=== PATIENT | male | born 1950 | race Caucasian/White ===

== ENCOUNTER 2019-02-27 21:35 | Observation (INO) | payer OTHER, SELFPAY | END 2019-02-28 13:07 | disposition home or self-care (01) | LOC: MEDSURG 02-28 09:46 | PROVIDERS: Admitting Provider Internal Medicine; Emergency Provider Family Medicine; Family Provider Internal Medicine; PCP Internal Medicine; Visit Provider Internal Medicine | DX: K29.70 Gastritis, unspecified, without bleeding (principal); I25.10 Atherosclerotic heart disease of native coronary artery without angina pectoris; I10 Essential (primary) hypertension; E11.9 Type 2 diabetes mellitus without complications; N40.0 Benign prostatic hyperplasia without lower urinary tract symptoms; E78.5 Hyperlipidemia, unspecified; Z79.82 Long term (current) use of aspirin; Z79.4 Long term (current) use of insulin; Z79.02 Long term (current) use of antithrombotics/antiplatelets; Z95.5 Presence of coronary angioplasty implant and graft; K21.9 Gastro-esophageal reflux disease without esophagitis; G47.00 Insomnia, unspecified; M19.90 Unspecified osteoarthritis, unspecified site | CPT/HCPCS: 36415; 36416 ×3; 36600; 71045; 74176; 80048; 80053; 82803; 82962 ×3; 83605 ×2; 83690; 83735; 83880; 84484 ×2; 85025 ×2; 85610; 87040 ×2; 87804 ×2; 93005 ×3; 96361; 96374; 96375; 99284; G0378 ×62; J1644 ×2; J1815; J2405 ×2 ==

== ENCOUNTER 2019-04-01 03:24 | Inpatient (IN) | payer OTHER, SELFPAY ==
[2019-04-01] VITALS (67 sets, daily range): BP systolic 66–157; BP diastolic 46–98; PULSE 69–106; RESP 12–40; TEMP 36.4–36.9; O2SAT 90–100; BMI 27.8
--- NOTE | 2019-04-01 03:30 | ED_ITS ---
Entered by Jennyfer [place], acting as scribe for Michael Wheeler DO HPI - Dizziness General: Chief Complaint: Dizziness Stated Complaint: DIZZINESS Time Seen by Provider: 04/01/19 03:31 Source: patient Mode of arrival: EMS Limitations: no limitations History of Present Illness: HPI Narrative: 69 yo m came to the er by [facility] for Dizziness. Onset was tonight. Pt states that he woke up with some dizziness and had chest pain earlier but the chest pain is gone now. MD elicited complaint: dizziness Onset (ago): day(s) (tonight) Timing: sudden onset Severity: mild History of similar symptoms: No Associated symptoms: Reports no associated symptoms, chest pain, cough, fevers/chills and nausea; Denies chills, headache(s) or vomiting Associated neuro symptoms: Reports no associated symptoms; Deny confusion Review of Systems Const: Reports: fever; Denies: chills Eyes: Denies: change in vision ENMT: Denies: swelling of lips/tongue Card: Reports: chest pain Resp: Reports: shortness of breath and productive cough; Denies: non-productive cough or wheezing GI: Reports: abdominal pain and nausea; Denies: vomiting : Denies: difficulty urinating Musc: Denies: back pain, redness or joint warmth Skin/Breast: Denies: rash, itching or redness Neuro: Reports: dizziness; Denies: headache, vertigo or confusion Psych: Denies: anxiety PFSH ED PFSH: Statuses (acute, chronic, etc) shown below reflect problem list status as previously entered and may not be historically accurate Medical History (Updated 04/01/19 @ 11:03 by Erfaín Harrington MD) Atherosclerotic heart disease of [place] coronary artery with other forms of angina pectoris (Acute) Benign prostate hyperplasia (Acute) CAD (coronary artery disease) (Acute) Chronic abdominal pain (Acute) Coronary stent restenosis (Acute) Diabetes (Acute) Diabetic nephropathy (Acute) Dyslipidemia (Acute) Fatigue (Acute) Gastroesophageal reflux (Acute) H/O coronary angiogram (Acute) Hypertension (Acute) Surgical History H/O cardiac catheterization (Acute) History of heart artery stent (Acute) Hx of appendectomy (Acute) Family History Other Hyperlipidemia Hypertension Social History Smoking and tobacco status: never smoked Alcohol intake: never Substance/Drug Use: never Household members: spouse Housing: House Physical Exam Const: GENERAL APPEARANCE: well developed and ill appearing ORIENTATION/CONSCIOUSNESS: Yes oriented to person, Yes oriented to place and Yes oriented to time HENMT: COMMON NORMALS: normocephalic, external ears normal and external nose normal HEAD & SCALP: normocephalic; no scalp tenderness FACE & SINUS: normal facial exam NOSE: external nose normal and no nasal discharge EXTERNAL EAR: Yes external ears normal Eye: COMMON NORMALS: PERRL, EOMs intact bilaterally and conjunctivae normal EYELID: eyelids normal CONJUNCTIVA: Yes conjunctivae normal PUPIL: Yes PERRL Neck/C-Spine: COMMON NORMALS: full ROM GENERAL: No tracheal deviation Chest: COMMONS NORMALS: inspection of chest normal CHEST: No tenderness Resp: COMMON NORMALS: clear to auscultation bilaterally EFFORT & INSPECTION: No tachypneic, No respiratory distress, No retractions, No uses accessory muscles and No tracheal deviation AUSCULTATION: clear to auscultation bilaterally, no rhonchi, no wheezes and lung sounds not diminished Cardio: COMMON NORMALS: regular rate; negative for regular rhythm RATE: regular rate RHYTHM: abnormal rhythm HEART SOUNDS: no murmurs PERIPHERAL PULSES: radial pulses present GI: INSPECTION: No abdominal distension AUSCULTATION: No hyperactive bowel sounds and No hypoactive bowel sounds PALPATION: No guarding and No rigid PERCUSSION: no dullness to percussion and no tympanic to percussion Neuro: SENSORIUM/ORIENTATION: Yes oriented to person, Yes oriented to place and Yes oriented to time Psych: COMMON NORMALS: mental status grossly normal Skin: COMMON NORMALS: no rashes or lesions noted GENERAL SKIN EXAM: no rashes or lesions noted Course ED course: 69-year-old male with a history of prior coronary disease and stent. He had been having more chest discomfort symptoms for the past couple of weeks. He was seen by his assistant activities director a couple of days ago, and has had chest pain episodes on and off since then requiring nitroglycerin at home. When he awoke this morning, he was quite dizzy, nearly passed out at home. He did not feel well at all. He denied any chest pain. He still continues to deny chest pain. He was hypotensive on EMS arrival, and remained so here. Current blood pressure is 81/46. His heart rate 73. His EKG done and read at 3:37 AM shows atrial fibrillation, with cues anteriorly that were not present on his prior EKG a month ago. He also has some residual ST elevation in V3 V4 and V5. Spoke with cardiology. They agree he is likely completed an infarct. Since he is not having chest pain at this time, the recommendation is to treat him medically. His chest x-ray shows a possible infiltrate. He notes a low-grade temperature the past few days and had been coughing. He is gotten aspirin. Rectal exam performed due to apparent decrease in hemoglobin since the last month. It is negative for occult blood. He is still denying any chest pain. He will go to the ICU because of the continued hypotension. The unit of crossmatched blood has been ordered. Consultations: Consultation #1: izzy. Called, no answer Time: 03:45 Consultation #2: Ankita Time: 03:55 Vital Signs: Vital signs: Vital Signs Temperature 98.1 F 04/02/19 00:21 Pulse Rate 89 04/02/19 00:21 Respiratory Rate 28 H 04/02/19 00:21 Blood Pressure 128/85 04/02/19 00:21 Pulse Oximetry 94 04/01/19 22:20 MDM - Dizziness Lab Data: Labs: Lab Results 04/01/19 04/01/19 04/01/19 Range/Units 04:10 04:10 04:10 WBC 10.5 H (4.0-10.0) 10^3/ uL RBC 3.11 L (4.1-5.3) 10^6/u L Hgb 8.8 L (11.7-16.6) g/dL Hct 27.1 L (42.0-52.0) % MCV 87.1 (80-94) fL MCH 28.3 (28.0-34.0) pg MCHC 32.5 (30.0-36.0) g/dL RDW 13.5 (12.1-15.1) % Plt Count 195 (130-400) 10^3/c mm MPV 12.4 H (7.4-10.4) fL Neut % (Auto) 69.2 % Lymph % (Auto) 16.5 % [place] % (Auto) 12.8 % Eos % (Auto) 1.1 % Baso % (Auto) 0.2 % Neut # (Auto) 7.3 (1.8-7.7) 10^3/u L Lymph # (Auto) 1.7 (0.8-4.8) 10^3/u L [place] # (Auto) 1.4 H (0.2-0.9) 10^3/u L Eos # (Auto) 0.1 (0.0-0.8) 10^3/u L Baso # (Auto) 0.0 (0.0-0.1) 10^3/u L Nucleated RBC % (a uto) 0 % Nucleated RBCs # 0.0 /100WBC PT 15.40 H (10.5-13.3) SECO NDS INR 1.18 (0.8-1.2) APTT 24.5 (23.9-36.7) SECO NDS Sodium Cancelled Potassium Cancelled Chloride Cancelled Carbon Dioxide Cancelled Anion Gap Cancelled BUN Cancelled Creatinine Cancelled GFR Calculation Cancelled Glucose Cancelled Lactate (0.5-2.2) mmol/L Calcium Cancelled Magnesium Cancelled Total Bilirubin Cancelled AST Cancelled ALT Cancelled Alkaline Phosphata se Cancelled Creatine Kinase Cancelled Troponin T Baselin e (0-15) ng/mL NT-Pro-B Natriuret Pep Cancelled Total Protein Cancelled Albumin Cancelled Globulin Cancelled Blood Type Antibody Screen Crossmatch 04/01/19 04/01/19 04/01/19 Range/Units 04:10 04:10 04:10 WBC (4.0-10.0) 10^3/ uL RBC (4.1-5.3) 10^6/u L Hgb (11.7-16.6) g/dL Hct (42.0-52.0) % MCV (80-94) fL MCH (28.0-34.0) pg MCHC (30.0-36.0) g/dL RDW (12.1-15.1) % Plt Count (130-400) 10^3/c mm MPV (7.4-10.4) fL Neut % (Auto) % Lymph % (Auto) % [place] % (Auto) % Eos % (Auto) % Baso % (Auto) % Neut # (Auto) (1.8-7.7) 10^3/u L Lymph # (Auto) (0.8-4.8) 10^3/u L [place] # (Auto) (0.2-0.9) 10^3/u L Eos # (Auto) (0.0-0.8) 10^3/u L Baso # (Auto) (0.0-0.1) 10^3/u L Nucleated RBC % (a uto) % Nucleated RBCs # /100WBC PT (10.5-13.3) SECO NDS INR (0.8-1.2) APTT (23.9-36.7) SECO NDS Sodium 130 L Potassium 3.9 Chloride 94 L Carbon Dioxide 20 L Anion Gap 19.9 H BUN 12 Creatinine 1.3 H GFR Calculation 55.1 L Glucose 292 H Lactate 2.3 H (0.5-2.2) mmol/L Calcium 8.6 Magnesium 1.3 L Total Bilirubin 1.8 H AST 46 H ALT 17 Alkaline Phosphata se 77 Creatine Kinase 489 H* Troponin T Baselin e 1439 H* (0-15) ng/mL NT-Pro-B Natriuret Pep 20323 H Total Protein 6.5 L Albumin 3.0 L Globulin 3.5 Blood Type Antibody Screen Crossmatch 04/01/19 04/01/19 Range/Units 05:39 05:39 WBC (4.0-10.0) 10^3/ uL RBC (4.1-5.3) 10^6/u L Hgb 9.0 L (11.7-16.6) g/dL Hct 27.9 L (42.0-52.0) % MCV (80-94) fL MCH (28.0-34.0) pg MCHC (30.0-36.0) g/dL RDW (12.1-15.1) % Plt Count (130-400) 10^3/c mm MPV (7.4-10.4) fL Neut % (Auto) % Lymph % (Auto) % [place] % (Auto) % Eos % (Auto) % Baso % (Auto) % Neut # (Auto) (1.8-7.7) 10^3/u L Lymph # (Auto) (0.8-4.8) 10^3/u L [place] # (Auto) (0.2-0.9) 10^3/u L Eos # (Auto) (0.0-0.8) 10^3/u L Baso # (Auto) (0.0-0.1) 10^3/u L Nucleated RBC % (a uto) % Nucleated RBCs # /100WBC PT (10.5-13.3) SECO NDS INR (0.8-1.2) APTT (23.9-36.7) SECO NDS Sodium Potassium Chloride Carbon Dioxide Anion Gap BUN Creatinine GFR Calculation Glucose Lactate (0.5-2.2) mmol/L Calcium Magnesium Total Bilirubin AST ALT Alkaline Phosphata se Creatine Kinase Troponin T Baselin e (0-15) ng/mL NT-Pro-B Natriuret Pep Total Protein Albumin Globulin Blood Type O Negative Antibody Screen Negative Crossmatch See Detail Discharge Plan Discharge Admit Provider: Kate Becerril Condition: Good Discharge Orders: Transfer Out of Facility (Order); Ordered 04/01/19 Ordered By: Kate Becerril Discharge Diet: Low Salt Discharge Activity: Bedrest Discharge Date/Time: 04/01/19 06:41 Coding Level of Care Code ED Tip Stitcher for Amber Campbell The documentation recorded by the Stanislav em Stephanie Lyn, accurately reflects the service I personally performed and the decisions made by Liam jones Jeremy John, DO Apr 01, 2019 03:24
--- NOTE | 2019-04-01 03:37 | PC.NURSE ---
EKG done at 0334 and shown to ER doctor
--- NOTE | 2019-04-01 03:42 | XRR_ITS ---
PROCEDURE INFORMATION: Exam: XR Chest, 1 View Exam date and time: 04/01/2019 3:46 AM Age: 69 years old Clinical indication: Cough; Prior surgery; Surgery date: 6+ months; Surgery type: Stents; Additional info: Dizzy TECHNIQUE: Imaging protocol: XR of the chest Views: 1 view. COMPARISON: CR Chest 1 [place] [id number] 02/27/2019 6:57 PM FINDINGS: Lungs: Minimal focal opacity in the lateral left lung base. Mild retrocardiac opacity. Pleural space: There is no pleural effusion or pneumothorax. Heart/Mediastinum: Cardiomediastinal contours are unremarkable. Bones/joints: Bones are unremarkable. XR/XR chest 1V portable [id number] IMPRESSION: 1. Questionably abnormal opacity versus normal vessels in the retrocardiac left lung base. Recommend follow-up PA and lateral chest radiograph. 2. Focal opacity in the lateral left lung base likely represents subsegmental atelectasis.
--- NOTE | 2019-04-01 03:45 | ECG_ITS ---
Measurements Intervals [place] Rate: 76 P: PA: 0 QRS: 56 QRSD: 90 T: 102 QT: 381 QTc: 430 ATRIAL FIBRILLATION ANTEROSEPTAL MYOCARDIAL INFARCTION , OF INDETERMINATE AGE [40+ ms Q WAVE IN V1-V4] Compared to ECG 02/28/2019 01:11:06 Myocardial infarct finding now present Sinus tachycardia no longer present Electronically Signed On 04-01-2019 16:23:44 FISHER EEL SPEAR by Efraín Harrington M.D. [id number]
[2019-04-01] MEDS: sodium chloride 0.9% 1,000 ML 999 ML IV (03:57)
--- NOTE | 2019-04-01 04:00 | PC.NURSE ---
pt presents to er room 5 per ems with c/o's recent chest pain x3 days that he has taken nitro for and has resolved. now presents with dizziness, weakness, and difficulty walking.
[2019-04-01 04:28] LABS: Basophils % 0.2 %; Eosinophils # 0.1 10^3/uL (0.0-0.8); Eosinophils % 1.1 %; Hematocrit 27.1 % (42.0-52.0); Hemoglobin 8.8 g/dL (11.7-16.6); Lymphocytes # 1.7 10^3/uL (0.8-4.8); Lymphocytes % 16.5 %; Mean Corpuscular HGB Conc 32.5 g/dL (30.0-36.0); Mean Corpuscular Hemoglobin 28.3 pg (28.0-34.0); Mean Corpuscular Volume 87.1 fL (80-94); Mean Platelet Volume 12.4 fL (7.4-10.4); Monocytes # 1.4 10^3/uL (0.2-0.9); Monocytes % 12.8 %; Neutrophils # 7.3 10^3/uL (1.8-7.7); Neutrophils % 69.2 %; Nucleated Red Blood Cells % 0 %; Platelet Count 195 10^3/cmm (130-400); Red Blood Count 3.11 10^6/uL (4.1-5.3); Red Cell Distribution Width 13.5 % (12.1-15.1); White Blood Count 10.5 10^3/uL (4.0-10.0)
[2019-04-01] MEDS: aspirin 325 mg Tablet PO (04:33)
[2019-04-01 04:38] LABS: Lactate (Lactic Acid level) 2.3 mmol/L (0.5-2.2)
[2019-04-01 04:45] LABS: INR 1.18 (0.8-1.2); Partial Thromboplastin Time 24.5 SECONDS (23.9-36.7)
[2019-04-01 04:55] LABS: Troponin(5th) Baseline 1439 ng/mL (0-15)
--- NOTE | 2019-04-01 04:56 | PC.NURSE ---
baseline troponin critical called to nurse from lab with value of 1439
--- NOTE | 2019-04-01 05:17 | PM.HP ---
Providers/Chief Complaint Primary Care Provider: Jose Raul Riley Chief Complaint: DIZZINESS History of Present Illness Fabián Cruz is a 69 year old male who has established coronary disease, 80% calcified LAD lesion, successful PCI to proximal and mid LAD with 2 drug-eluting stents on 10/20/2016,12/22/2017 he suffered from in-stent restenosis (got treated with overlapping 2 drug-eluting stents in LAD) with a EF of 40% at that time which improved to 60% after intervention, was seen on 03/29/2018by Dr. Mendoza who recommended coronary angiogram in case of development of symptoms. Patient is stating that he has been having shortness of breath and chest pain on exertion lately for past couple of weeks, he is compliant with his medications, his blood pressure mostly runs around 1 30-1 40s at home, he saw Dr. Hair on Wednesday, on night he went to bed after dinner, he started experiencing mild epigastric bandlike discomfort with shortness of breath and cough and around 2 AM he woke up with mild chest discomfort he took sublingual nitroglycerin, he was feeling mild chest discomfort after an hour and took another nitroglycerin. Throughout the day he kept having epigastric discomfort, he took his acid reflux medications which were not helping him like before. On Wednesday night he went to bed, he was still having mild shortness of breath and around 2 AM on Wednesday morning he started experiencing dizziness, he was very pale, he did not notice any dark-colored stools, hematuria, bleeding, hematemesis. His last bowel movement was almost 1 week ago, recently he has been noticing that his new onset of back pain. He thinks his abdomen is bloated. Patient is stating that Dr. Mendoza has reduced his lisinopril dose to 10 mg and discontinued hydrochlorothiazide because of dizziness and hypertension. Diagnostics in ER showed orthostasis systolic blood pressure is 88, diastolic is 60 mmHg, heart rate is ranging between 70-80, he is not complaining of chest pain at the moment but he is orthostasis positive, rectal exam was negative for occult blood, on Wednesday his hemoglobin was 11 and today it is 8.8 Decision was made to admit to ICU hold his dual antiplatelet therapy, consult Dr. Harrington, Dr. Luciano has been notified by ER physician already, transfuse with 1 unit If he starts having symptoms he will need to go to or for coronary angiogram on stat basis Review of Systems Const: Reports: chills, fatigue and malaise Eyes: Denies: change in vision ENMT: Denies: throat pain Card: Reports: chest pain, lightheadedness, pre-syncope, shortness of breath on exertion and shortness of breath when lying down; Denies: palpitations Resp: Reports: shortness of breath; Denies: non-productive cough GI: Reports: abdominal pain, bloating, cramping and change in bowel habits; Denies: nausea, vomiting or change in stool character : Denies: flank pain or difficulty urinating Musc: Reports: back pain; Denies: neck pain Skin/Breast: Denies: rash or itching Neuro: Denies: headache Psych: Denies: anxiety Endo: Denies: excessive urination Manas/Lymph: Denies: easy bruising All/Imm: Denies: hives Medications/Allergies Allergies Allergy/AdvReac Type Severity Reaction Status Date / Time No Known Allergies Allergy Verified 02/28/19 11:42 PFSH Acute PFSH: Statuses (acute, chronic, etc) shown below reflect problem list status as previously entered and may not be historically accurate Medical History (Updated 04/01/19 @ 05:25 by Kate Becerril MD) Benign prostate hyperplasia (Acute) CAD (coronary artery disease) (Acute) Coronary stent restenosis (Acute) Diabetes (Acute) Diabetic nephropathy (Acute) Dyslipidemia (Acute) Fatigue (Acute) Gastroesophageal reflux (Acute) H/O coronary angiogram (Acute) Hypertension (Acute) Surgical History (Updated 04/01/19 @ 05:24 by Kate Becerril MD) H/O cardiac catheterization (Acute) History of heart artery stent (Acute) Hx of appendectomy (Acute) Family History (Updated 04/01/19 @ 05:24 by Kate Becerril MD) Other Hyperlipidemia Hypertension Social History (Updated 04/01/19 @ 06:01 by Kate Becerril MD) Smoking and tobacco status: never smoked Alcohol intake: never Substance/Drug Use: never Household members: spouse Housing: House Vitals/I&O/Wt Last Vital Signs Temp 97.5 F L 04/01/19 03:28 Pulse 76 02/01/20 04:15 Resp 23 H 04/01/19 04:15 BP 79/48 04/01/19 04:15 Pulse Ox 97 04/01/19 04:15 Weight last 48 hrs Weight 98.43 kg Physical Exam Narrative: EXAM NARRATIVE: Overweight male sitting in his bed without any active discomfort, Pallor complexion Systolic blood pressure 88, heart rate 70, Saturating well on room air Abdomen is bloated, with obesity, bowel sounds very sluggish, nontender, no signs of peritonitis, no CVA tenderness, no active signs of bruising however mild left periumbilical bruise present from insulin injection site Variable S1-S2, no active signs of heart failure Chest is clear on auscultation with mild rhonchi bibasilar Neurologically nonfocal exam, GCS 15 Skin does not show any sign ischemia gangrene ulcer Rectal exam negative for occult blood Data : 04/01/19 04:10 04/01/19 04:10 Micro: Microbiology 04/01/19 04:10 Blood Culture - Preliminary Blood SPECIMEN COLLECTED A&P Assessment and plan (1) Unstable angina: Status: Acute Code(s): I20.0 - Unstable angina (2) Orthostasis: Status: Acute Code(s): I95.1 - Orthostatic hypotension (3) Hypotensive episode: Status: Acute Code(s): I95.9 - Hypotension, unspecified Additional A&P Information unstable angina Patient has established coronary disease with history of in-stent restenosis of LAD has been having exertional chest pain and now presented with dizziness Troponin I 439, EKG showing deep Q waves, with abnormal ST segment in V3 V4, 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 Hold lisinopril and metoprolol succinate because of hypotension Dr. Luciano has been notified by ER physician, he thinks V3 V4 changes are jose alfredo-infarctive changes Now we are stopping his dual antiplatelet therapy because of possible GI bleed, considering previous history of in-stent restenosis will consult Dr. Harrington as well Patient will need coronary angiogram because of his chronic angina equivalent symptoms Dizziness secondary to orthostasis Patient is hypotensive and tachycardic at the moment There is acute drop in hemoglobin from 11to 8.8 he has been on dual antiplatelet therapy I am reluctant to start heparin or Lovenox for now Considering coronary disease I would not wait until his hemoglobin drops below 8 I will go ahead and transfuse 1 unit for now Rectal exam did not show occult blood Levophed if mean arterial pressures less than 65 mmHg Type 2 diabetes, insulin-dependent Moderate sliding scale Dyslipidemia: Continue high-dose atorvastatin 80 mg because of history of coronary disease Full code This patient is high risk for cardiac arrest considering extensive LAD lesion and recurrence of angina Symptoms with New Onset Drop in Hemoglobin without Evident Source at the bedside, she seems to understand the gravity of the situation Attestations Medical Necessity Statement*: Anticipating stay more than 2 midnights currently needs ICU for hypovolemic versus cardiogenic shock Time Spent in Patient Care: (>than 50% of time spent in counselling and/or direct pt care on unit). 60 Coding Level of Care Code Acute Information Technology Security Analyst for Amber Campbell Diagnoses Unstable angina I20.0 Orthostasis I95.1 Hypotensive episode I95.9
--- NOTE | 2019-04-01 05:24 | PC.NURSE ---
in room stool guaiac spec obtained and resulted with neg results rec'd
[2019-04-01 05:26] LABS: Alanine Aminotransferase 17 U/L (0-41); Alkaline Phosphatase 77 IU/L (40-130); Anion Gap 19.9 (5-19); Blood Urea Nitrogen 12 mg/dL (8-23); Calcium 8.6 mg/dL (8.5-10.5); Carbon Dioxide 20 mmol/L (22-29); Chloride 94 mmol/L (98-107); Globulin 3.5 g/dL (1.3-4.6); Glomerular Filtration Rate 55.1 mL/min (90-130); Glucose 292 mg/dL (74-106); Magnesium 1.3 mg/dL (1.7-2.3); NT Pro B Type Natriuretic Pept 12487 pg/mL (0-125); Potassium 3.9 mmol/L (3.5-5.1); Sodium 130 mmol/L (136-145); Total Bilirubin 1.8 mg/dL (0.15-1.2); Total Protein 6.5 g/dL (6.6-8.7)
[2019-04-01 05:29] LABS: Aspartate Amino Transferase 46 U/L (0-40)
[2019-04-01 05:30] LABS: Creatine Phosphokinase 489 U/L (39-308)
--- NOTE | 2019-04-01 05:45 | ECG_ITS ---
Measurements Intervals [place] Rate: 87 P: 29 [place]: 228 QRS: 32 QRSD: 108 T: 69 QT: 349 QTc: 422 SINUS RHYTHM WITH FIRST DEGREE AV BLOCK MARKED ST ELEVATION, CONSIDER ANTERIOR INJURY [MARKED ST ELEVATION W/O NORMALLY INFLECTED T WAVE IN V2-V5] ACUTE IA Compared to ECG 02/28/2019 01:11:06 First degree AV block now present ST (T wave) deviation now present Myocardial infarct finding now present Sinus tachycardia no longer present Electronically Signed On 04-01-2019 16:29:25 WHITE WASHER by Efraín Harrington M.D. [id number]
--- NOTE | 2019-04-01 05:48 | CTR_ITS ---
PROCEDURE INFORMATION: Exam: CT Abdomen And Pelvis Without Contrast Exam date and time: 04/01/2019 6:11 AM Age: 69 years old Clinical indication: Abdominal pain; Acute; Prior surgery; Surgery date: 6+ months; Surgery type: Appendectomy; Additional info: Acute drop in hg TECHNIQUE: Imaging protocol: Computed tomography of the abdomen and pelvis without contrast. Total DLP: 1475.99 mGy-cm Radiation optimization: All CT scans at this facility use at least one of these dose optimization techniques: automated exposure control; mA and/or kV adjustment per patient size (includes targeted exams where dose is matched to clinical indication); or iterative reconstruction. COMPARISON: CT Abdomen/[place] [id number] 02/27/2019 10:52 PM FINDINGS: Detailed evaluation of the abdominal and pelvic viscera is somewhat limited in the absence of intravenous contrast. Pleural space: Interstitial prominence, mild bibasilar airspace disease, and small pleural effusions. Liver: No focal hepatic mass. Gallbladder and bile ducts: No cholelithiasis or biliary ductal dilatation. Pancreas: Stable pancreatic atrophy. Spleen: Mildly enlarged spleen measuring 12.4 cm in length. Adrenals: Unremarkable adrenals. Kidneys and ureters: Normal renal morphology. No hydronephrosis. Mild stable infiltration of perinephric fat. Stomach and bowel: Gastric wall thickening. No significant small bowel dilatation. Copious stool, in a pattern of constipation. Appendix: Appendix not visualized. Intraperitoneal space: No free fluid. Vasculature: Normal caliber of the abdominal aorta. Vascular calcification. Lymph nodes: Subcentimeter lymph nodes. Bladder: Normal morphology of the dilated bladder. Reproductive: Mildly enlarged prostate. Bones/joints: Healing right sixth rib fracture. Osteopenia and degenerative change. Soft tissues: Mild infiltration of subcutaneous fat in the left anterior abdominal wall. CT/CT abdomen pelvis wo con [id number] IMPRESSION: 1. Gastric wall thickening. 2. Copious stool, in a pattern of constipation. 3. Additional findings as described above. Radiation Dose CTDIVOL = (mGy): DLP = 1475.99 (mGy-cm)
[2019-04-01] MEDS: sodium chloride 0.9% 500 ML 999 ML IV (06:14)
--- NOTE | 2019-04-01 06:34 | PC.NURSE ---
attempted to call report to IC. informed AMAN mascorro would be rec'ing report but was currently tied up in pt room. will await for return call
--- NOTE | 2019-04-01 06:40 | USCV_ITS ---
Fabián Cruz Age: 69 Gender: M : 1950 Exam Date: 04/01/2019 10:31 Ordering Phys: Kate Becerril MD Technologist: Meseret Son Exam Location: [facility] [place] Indication: CHF BP: 98 / 61 HR: 83 Rhythm: Sinus Technical Quality: MEASUREMENTS (Male / Female) Normal Values 2D ECHO LV Diastolic Diameter PLAX 3.6 cm 4.2 - 5.9 / 3.9 - 5.3 cm LV Systolic Diameter PLAX 3.0 cm LV Chamber Size 4.4 cm IVS Diastolic Thickness 2.1 cm 0.6 - 1.0 / 0.6 - 0.9 cm IVS Systolic Thickness 2.1 cm LVPW Diastolic Thickness 0.9 cm 0.6 - 1.0 / 0.6 - 0.9 cm LVPW Systolic Thickness 1.0 cm RV Chamber Size 2.3 cm LVOT Diameter 2.1 cm LV Ejection Fraction 2D Teich 38.1 % LA Diameter 3.9 cm LA Width 4.0 cm LA Height 5.8 cm RA Width 2.9 cm RA Height 5.2 cm Aorta at Sinotubular Diameter 2.5 cm M-MODE LV Diastolic Diameter MM 5.5 cm 4.2 - 5.9 / 3.9 - 5.3 cm LV Systolic Diameter MM 4.6 cm LV Ejection Fraction MM Teich 32.7 % IVS Diastolic Thickness MM 1.4 cm 0.6 - 1.0 / 0.6 - 0.9 cm IVS Systolic Thickness MM 1.4 cm LVPW Diastolic Thickness MM 1.5 cm 0.6 - 1.0 / 0.6 - 0.9 cm LVPW Systolic Thickness MM 1.9 cm RV Diastolic Diameter MM 1.7 cm Aortic Annulus Diameter 3.8 cm LA Ao Ratio MM 1.0 MV E Point Septal Separation 0.6 cm DOPPLER AV Peak Velocity 95.0 cm/s LVOT Peak Velocity 73.0 cm/s AV Area Cont Eq vti 2.3 cm squared AV Area Cont Eq pk 2.7 cm squared MV Area PHT 4.9 cm squared Mitral E to A Ratio 2.8 MV E' Velocity 7.0 cm/s Mitral E to MV E' Ratio 14.1 Mitral E to LV E' Lateral Ratio 14.1 Mitral E to LV E' Septal Ratio 14.1 TR Peak Velocity 274.0 cm/s TR Peak Gradient 30.1 mmHg TV Peak E Velocity 44.0 cm/s Right Atrial Pressure 15.0 mmHg Pulmonary Artery Systolic Pressu 45.0 mmHg PV Peak Velocity 68.0 cm/s RV Acceleration Time 0.1 s RV Ejection Time 0.3 s RV AcT/ET 0.3 FINDINGS Left Ventricle Normal LV size with a slightly diminished ejection fraction of 40%. Hypokinesis of mid and apical septal, anteroseptal and apical inferior wall segments Right Ventricle Normal right ventricular size and systolic function. Right Atrium The right atrium is normal in size. Left Atrium The left atrium is normal in size. Mitral Valve Thickened mitral valve. Trace to mild mitral valve regurgitation. Aortic Valve Thickened aortic valve. Tricuspid Valve Trace tricuspid valve regurgitation. Pulmonic Valve No gross abnormalities noted Pericardium Normal pericardium without effusion. Aorta Normal aortic annulus size. CONCLUSIONS Normal LV size with a diminished ejection fraction of 40%. Wall motion normalities as mentioned above. Thickened mitral valve. Trace to mild mitral valve regurgitation. Trace tricuspid valve regurgitation. Estimated pulmonary artery peak systolic pressure of 45 mmHg Thickened aortic valve. There is no pericardial effusion. There are no intracardiac masses. No previous study is available for comparison. Dr Efraín Harrington MD FAC (Electronically Signed) Final Date: 01 April 2019 13:08 S
[2019-04-01 06:57] LABS: Hematocrit 27.9 % (42.0-52.0)
[2019-04-01 07:12] LABS: Thyroid Stimulating Hormone 3.67 uIU/mL (0.27-4.20)
[2019-04-01] MEDS: sodium chloride 0.9% 1,000 ML 100 ML IV (07:46)
--- NOTE | 2019-04-01 08:27 | PM.PN ---
Subjective Subjective: Interval history: History and physical reviewed. Patient reports no complaints currently. He denies being dizzy with laying flat, and has had no chest pain all night. Reducing his cardiac meds secondary to lower blood pressure. He reports he last took his home medications yesterday. He had been having some abdominal bloating recently. He has had no abdominal pain. Medications: Reviewed: Yes Vitals/I&O/Wt Last Vital Signs Temp 97.5 F L 04/01/19 03:28 Pulse 76 04/01/19 08:22 Resp 18 04/01/19 08:22 BP 98/61 04/01/19 08:22 Pulse Ox 96 04/01/19 08:22 Weight last 48 hrs Weight 98.43 kg Physical Exam Narrative: EXAM NARRATIVE: General exam no apparent distress Cardiovascular r irregular, irregular Lungs clear Abdomen is soft with positive bowel sounds Extremities no cyanosis clubbing or edema Data : 04/01/19 05:39 04/01/19 04:10 Micro: Microbiology 04/01/19 05:39 Blood Culture - Preliminary Blood SPECIMEN COLLECTED 04/01/19 04:10 Blood Culture - Preliminary Blood SPECIMEN COLLECTED A&P Assessment and plan (1) Unstable angina: Patient reports no chest discomfort currently to me. He does report chest discomfort about a week ago, and there was concerns he may need another angiogram. Troponin elevation noted but so far no significant delta Status: Acute Code(s): I20.0 - Unstable angina (2) Orthostasis: Rehydrating. Holding all medications which could contribute to hypotension. Status: Acute Code(s): I95.1 - Orthostatic hypotension (3) Hypotensive episode: See above. We will also need to evaluate ejection fraction. Previous EF around 40%. Status: Acute Code(s): I95.9 - Hypotension, unspecified Additional A&P Information Coronary artery disease with history of stenting LAD with in-stent stenosis in the past. See H&P for details. Hypotension. See above regarding orthostasis. Holding beta-eitan, lisinopril. Must also consider infection so we will check influenza, urinalysis hydrochlorothiazide recently discontinued. Anemia. Heme-negative stool. Check B12, folate, iron studies Recent history of cough, check influenza Elevated bilirubin, check hepatic ultrasound Type 2 diabetes. Start sliding scale insulin. Stopping metformin secondary to lactic acidosis, abdominal bloating Hyperlipidemia, continue statin Attestations Medical Necessity Statement*: Needs continued ICU stay secondary to hypotension, with further exploration of elevated troponin Critical Care Time: Significant time spent in evaluation of old records, current hypotension, possible need for pressors, etc. Critical Care Time (min): 38 Coding Level of Care Code Acute Customer Service Supervisor for g Fwd Diagnoses Unstable angina I20.0 Orthostasis I95.1 Hypotensive episode I95.9
--- NOTE | 2019-04-01 08:34 | USR_ITS ---
PROCEDURE INFORMATION: Exam: US Abdomen Limited, Right Upper Quadrant Exam date and time: 04/01/2019 11:08 AM Age: 69 years old Clinical indication: Abnormal findings; Abnormal lab test; Other: Abnormal biliruben; Additional info: Elevated bilirubin TECHNIQUE: Imaging protocol: Real-time ultrasound of the abdomen with image documentation. Examination was focused on the right upper quadrant. COMPARISON: CT abdomen pelvis wo con [id number] 04/01/2019 6:34 AM FINDINGS: Pleural space: Small right pleural effusion. Liver: No focal hepatic mass. Gallbladder: Low level echoes in the gallbladder. No shadowing calculi, wall edema, or pericholecystic fluid. Technologist reported negative sonographic Bejarano's sign. Common bile duct: Normal caliber of the visualized common bile duct measuring 3 mm. Pancreas: Obscuration of the pancreas by bowel gas. Right kidney: Normal right renal morphology. No hydronephrosis. Inferior vena cava: Unremarkable IVC. US/US gall bladder [id number] IMPRESSION: 1. Small right pleural effusion. 2. No significant sonographic abnormality in the visualized right upper quadrant viscera.
--- NOTE | 2019-04-01 09:18 | PM.CONSULT ---
Providers/Reason For Consult Consulting Physican/Specialty*: Kristi Harrington MD/cardiology Reason for Consult*: Patient with chest pain/elevated troponin/history of coronary artery disease Attending Physician: Kali Kwon MD Primary Care Provider: Jose Raul Riley History of Present Illness History of Present Illness Fabián Cruz is a 69 year old male with a history of coronary artery disease, multiple PCI's, is present with complaints of extreme weakness/fatigue. Patient was found to have an elevated troponin and abnormal EKG. The EKG was suggesting a recent anterior wall myocardial infarction. Cardiology consult is requested for further cardiac evaluation and recommendations. Patient is known to have single-vessel coronary disease, for which he underwent multiple PCI's in the past. He had a first myocardial infarction in 2016. He had a high-grade lesion in the proximal LAD for which he underwent PCI. He presented with unstable anginal symptoms in September 2017. He had features of restenosis of the LAD lesion. Underwent a repeat angioplasty and stent placement. Most recently in March 2018, he presented with unstable anginal symptoms. He had a PCI involving the ostium of the LAD, proximal to mid LAD lesions. Details are as mentioned below. According the patient, he has been having chest pains off and on for the last couple of years. He also has some stomach discomfort/bloating. He was not able to differentiate between the stomach problem and the heart pain. For this reason, he has been taking Gas-X/stomach medications for the lower epigastric/substernal discomfort which he usually gets after a meal. He has been having the symptoms almost every day, 2 or 3 times per day. He was seen by Dr. Mendoza on last Wednesday and at that time, was prescribed sublingual nitro. Since then, he has been taking the sublingual nitro for the symptoms. He has been taking 3 of 4 nitroglycerin under the tongue since then. According to his , he has been feeling tired, weak and somewhat unsteady for the last 3 weeks. He also was found to be pale. Last night, as he was getting ready to go to bed, he was found to be more weak, staggery and pale. He was sitting up in a chair for a long time. Finally around midnight, he decided to go to bed. He was not able to sleep. So around 2:00 in the morning, he got up and told his to bring him to the hospital. He did not have any chest pain at that time. His symptom was mainly feeling of weakness and some generalized uneasiness. He may have had some shortness of breath. But no orthopnea or PND. No fever, chills or cough. No other specific complaints. He is a has been having stomach issues for the last few years. In January of last year, he was admitted to the hospital with an acute onset of nausea vomiting and diarrhea. He has intermittent constipation and diarrhea. He has not had any GI work-up recently. He is scheduled to have an appointment with Dr. Edwards for possible colonoscopy on the of this month. Review of Systems Narrative: CONSTITUTIONAL: No fever or chills. Feeling of generalized weakness/unsteadiness EYES: No blurring of vision or other visual disturbances lately. ENT: No hoarseness of voice, auditory disturbances or sore throat. CARDIOVASCULAR: As mentioned above. RESPIRATORY: No significant cough. GASTROINTESTINAL: Has been having constipation/diarrhea/bloating and epigastric discomfort especially after a meal GENITOURINARY: No dysuria or hematuria. INTEGUMENTARY: No skin rashes or history of skin cancer. NEURO: No transient ischemic attacks or amaurosis. PSYCHIATRIC: No history of psychosis or major depression. HEMATOLOGIC: No bleeding disorders or significant anemia. ENDOCRINE: No history of polyuria or polydipsia. MUSCULOSKELETAL: Patient has been staggery with no joint pains ALLERGY/IMMUNOLOGY: As mentioned above. Meds/Allergies Home Medications and Allergies Home Medications Medication Instructions Recorded Confirmed Type acetaminophen 650 mg PO Q4H PRN 02/28/19 04/01/19 History aspirin [Aspir-81] 81 mg PO DAILY 02/28/19 04/01/19 History atorvastatin 80 mg PO BEDTIME 02/28/19 04/01/19 History gabapentin 900 mg PO BID 02/28/19 04/01/19 History insulin NPH and regular human 30 unit SUBCUT BID 02/28/19 04/01/19 History [Novolin 70/30 U-100 Insulin] insulin glargine [Lantus U-100 50 unit SUBCUT DAILY 02/28/19 04/01/19 History Insulin] metformin 1,000 mg PO BID 02/28/19 04/01/19 History tamsulosin 0.4 mg PO DAILY 02/28/19 04/01/19 History ticagrelor 90 mg PO BID 02/28/19 04/01/19 History albuterol sulfate 90 mcg/actuation 2 puff INHALATION Q6H PRN 03/29/19 04/01/19 History aerosol inhaler Allergies Allergy/AdvReac Type Severity Reaction Status Date / Time No Known Allergies Allergy Verified 02/28/19 11:42 Current Medications Current Medications Generic Name Dose Route Start Last Admin Trade Name Freq PRN Reason Stop Dose Admin Sodium Chloride 1,000 mls @ 100 mls/hr 04/01/19 06:40 04/01/19 07:46 Sodium Chloride 0.9% IV 100 mls/hr .Q10H ROSHAN Administration Current Medications Atorvastatin Calcium (Lipitor) 80 mg PO BEDTIME ROSHAN Dextrose (D50w) 25 ml IVP ONCE PRN; Protocol PRN Reason: hypoglycemia protocol Dextrose (D50w) 50 ml IVP PRN PRN; Protocol PRN Reason: hypoglycemia protocol Glucagon (Glucagen) 1 mg IM ONCE PRN; Protocol PRN Reason: Adult Acute Hypoglycemia Prot. Sodium Chloride (Sodium Chloride 0.9%) 1,000 mls @ 100 mls/hr IV .Q10H ROSHAN Last Admin: 04/01/19 07:46 Dose: 100 mls/hr Documented by: Dextrose (D5w) 500 mls @ 100 mls/hr IV ONCE PRN; Protocol PRN Reason: Adult Acute Hypoglycemia Prot Insulin Aspart (Novolog) 0 unit SUBCUT WM&BEDTIME ROSHAN; Protocol Ondansetron HCl (Zofran) 4 mg IVP Q6H PRN PRN Reason: NAUSEA AND VOMITING Pantoprazole Sodium (Protonix) 40 mg IVP BID ROSHAN PFSH Acute PFSH: Statuses (acute, chronic, etc) shown below reflect problem list status as previously entered and may not be historically accurate Medical History Benign prostate hyperplasia (Acute) CAD (coronary artery disease) (Acute) Coronary stent restenosis (Acute) Diabetes (Acute) Diabetic nephropathy (Acute) Dyslipidemia (Acute) Fatigue (Acute) Gastroesophageal reflux (Acute) H/O coronary angiogram (Acute) Hypertension (Acute) Surgical History H/O cardiac catheterization (Acute) History of heart artery stent (Acute) Hx of appendectomy (Acute) Family History Other Hyperlipidemia Hypertension Social History Smoking and tobacco status: never smoked Alcohol intake: never Substance/Drug Use: never Household members: spouse Housing: House Vitals/I&O/Wt Last Vital Signs Temp 97.5 F L 04/01/19 03:28 Pulse 76 04/01/19 08:22 Resp 18 04/01/19 08:22 BP 98/61 04/01/19 08:22 Pulse Ox 96 04/01/19 08:22 Weight last 48 hrs Weight 217 lb Physical Exam Narrative: EXAM NARRATIVE: GENERAL: The patient is alert and oriented times three. Not in any acute distress. Mainly complaining of bloated feeling in the stomach HEENT: No significant pallor, icterus or lymphadenopathy. The pupils are reactant to light. Oral cavity: There are no mucous membrane lesions. Funduscopic examination: Fundus is not visualized NECK: Trachea appears to be central. No masses noted. No JVD or thyromegaly appreciated. No carotid bruit. RESPIRATORY: Chest is symmetrical. No intercostals muscle retraction or any accessory muscle activation. There is no chest wall tenderness. Breath sounds are heard bilaterally. No rales or rhonchi heard. No evidence of any consolidation. BREASTS: Deferred. HEART: The PMI could not be palpated. First and second heart sounds are normal. No S3. Short systolic murmur in the left sternal border. No diastolic murmurs. No pericardial rub. ABDOMEN: Slightly distended. Vague tenderness in the epigastric area. No organomegaly appreciated. Bowel sounds are normally heard. : Deferred. RECTAL: Deferred. LYMPHATIC: No lymphadenopathy noted in the neck or groin. EXTREMITIES: No edema or cyanosis. No clubbing. T peripheral pulses are palpable but somewhat weak bilaterally. MUSCULOSKELETAL: No acute joint deformities or swelling SKIN: There are no significant scars or skin rash noted. NEUROPSYCHIATRIC: The patient is alert and oriented x3. Appears to be in a good mood. The higher functions are grossly within normal limits. No tremors or rigidity noted. Data Micro: Micro: Microbiology 04/01/19 05:39 Blood Culture - Pr eliminary Blood SPECIMEN [facility] 04/01/19 04:10 Blood Culture - Pr eliminary Blood SPECIMEN [facility] Abnormal lab results 04/01/19 04/01/19 04/01/19 Range/Units 04:10 04:10 04:10 WBC 10.5 H (4.0-10.0) 10^3/ uL RBC 3.11 L (4.1-5.3) 10^6/u L Hgb 8.8 L (11.7-16.6) g/dL Hct 27.1 L (42.0-52.0) % MPV 12.4 H (7.4-10.4) fL [place] # (Auto) 1.4 H (0.2-0.9) 10^3/u L PT 15.40 H (10.5-13.3) SECO NDS Sodium (136-145) mmol/L Chloride (98-107) mmol/L Carbon Dioxide (22-29) mmol/L Anion Gap (5-19) Creatinine (0.7-1.2) mg/dL GFR Calculation (90-130) mL/min Glucose (74-106) mg/dL Lactate (0.5-2.2) mmol/L Magnesium (1.7-2.3) mg/dL Total Bilirubin (0.15-1.2) mg/dL AST (0-40) U/L Creatine Kinase (39-308) U/L Troponin T Baselin e 1439 H* (0-15) ng/mL Troponin T 120 Min [place] (0-15) ng/mL Delta Troponin T (0-10) ABS# NT-Pro-B Natriuret Pep (0-125) pg/mL Total Protein (6.6-8.7) g/dL Albumin (3.5-5.2) g/dL Crossmatch 04/01/19 04/01/19 04/01/19 Range/Units 04:10 04:10 05:39 WBC (4.0-10.0) 10^3/ uL RBC (4.1-5.3) 10^6/u L Hgb (11.7-16.6) g/dL Hct (42.0-52.0) % MPV (7.4-10.4) fL [place] # (Auto) (0.2-0.9) 10^3/u L PT (10.5-13.3) SECO NDS Sodium 130 L (136-145) mmol/L Chloride 94 L (98-107) mmol/L Carbon Dioxide 20 L (22-29) mmol/L Anion Gap 19.9 H (5-19) Creatinine 1.3 H (0.7-1.2) mg/dL GFR Calculation 55.1 L (90-130) mL/min Glucose 292 H (74-106) mg/dL Lactate 2.3 H (0.5-2.2) mmol/L Magnesium 1.3 L (1.7-2.3) mg/dL Total Bilirubin 1.8 H (0.15-1.2) mg/dL AST 46 H (0-40) U/L Creatine Kinase 489 H* (39-308) U/L Troponin T Baselin e (0-15) ng/mL Troponin T 120 Min [place] (0-15) ng/mL Delta Troponin T (0-10) ABS# NT-Pro-B Natriuret Pep 33034 H (0-125) pg/mL Total Protein 6.5 L (6.6-8.7) g/dL Albumin 3.0 L (3.5-5.2) g/dL Crossmatch See Detail 04/01/19 04/01/19 Range/Units 05:39 06:11 WBC (4.0-10.0) 10^3/ uL RBC (4.1-5.3) 10^6/u L Hgb 9.0 L (11.7-16.6) g/dL Hct 27.9 L (42.0-52.0) % MPV (7.4-10.4) fL [place] # (Auto) (0.2-0.9) 10^3/u L PT (10.5-13.3) SECO NDS Sodium (136-145) mmol/L Chloride (98-107) mmol/L Carbon Dioxide (22-29) mmol/L Anion Gap (5-19) Creatinine (0.7-1.2) mg/dL GFR Calculation (90-130) mL/min Glucose (74-106) mg/dL Lactate (0.5-2.2) mmol/L Magnesium (1.7-2.3) mg/dL Total Bilirubin (0.15-1.2) mg/dL AST (0-40) U/L Creatine Kinase (39-308) U/L Troponin T Baselin e (0-15) ng/mL Troponin T 120 Min [place] 1438.00 H (0-15) ng/mL Delta Troponin T -1.00 L (0-10) ABS# NT-Pro-B Natriuret Pep (0-125) pg/mL Total Protein (6.6-8.7) g/dL Albumin (3.5-5.2) g/dL Crossmatch Imaging^: CXR: My impression: Borderline cardiac silhouette with no lung infiltrate. Slight prominence of the pulmonary vascular markings. No definite infiltrate. Cardiac catheterization: My impression: Patient had the most recent cardiac cauterization in March 2018. Successful balloon angioplasty followed by drug-eluting placement inproximal mid and ostial LAD for severe in-stent restenosis. Patient wastreated for in-stent restenosis in September of last year. Because of worseningof angina despite of medical management to the point that he was having chestpain at rest patient was brought in today for coronary angiogram. LAD which has previous multiple proximal to mid stents had proximal and mid 80% severein-stent restenosis while ostial segment of the proximal LAD has severe 95%in-stent restenosis. Both lesions were treated with balloon angioplastyfollowed by Jason 3.0x12 and 3.0x8mm distal and Ostial LAD stents. The stents wereinflated at high VITALIY of 14 mmHg. Noncompliant 3.08 mm balloon was then usedto post dilate with the stents at 12 VITALIY. Excellent angiographic result withTIMI-3 flow was achieved. On 10/15/2017, the cardiac catheterization revealed #1 Left main is normal. #2 LAD has ostial 99% diffuse in-stent restenosis and proximal 70% diffuse in-stent restenosis of previously placed stents. It is the culprit vessel. #4 obtuse marginal 1 is small caliber diffusely diseased vessel which has ostial 80% stenosis not amenable to intervention. Obtuse marginal 2 is small caliber moderate-sized vessel with mid diffuse disease. #5 RCA is small nondominant vessel with luminal irregularities. Successful PCI to ostial and proximal LAD for severe in-stent restenosis. Lesions were prepared with 2.0x12 AB TREK balloon, followed by deployment of JASON INTEGRITY 3.0 X 15 mm stent posted at high VITALIY of 12 mm. Stent was then post-dilated with serial dilatation of NC Quantum3.0 x 12 at 18ATM in its entire length to ensure proper approximation. In-stent restenosis of the proximal LAD stent was treated with NC balloon as well. 70% lesion was reduced to 10%. Excellent angiographic result with MANNY-3 flow was achieved. There is severe coronary artery disease with one vessel disease. EKG^: EKG 1: My Interpretation: Atrial fibrillation with a controlled ventricular response rate. Features of recent anteroseptal wall VA. Nonspecific ST-T changes in the other leads. EKG 2: My Interpretation: Atrial fibrillation/flutter with a ventricular rate of 70 bpm. Poor R wave progression with a features of recent anteroseptal VA nonspecific ST-T changes. Minimal right axis deviation. A&P Assessment and plan (1) Recent myocardial infarction of anterior wall: The clinical features are consistent with recent anterior wall myocardial infarction. The EKG changes and the elevated troponin are highly suggestive of the recent event. Patient may be kept on the current medications at this time. Because of the significant drop in the hemoglobin, it may be appropriate to hold off on the IV anticoagulation at this time. Patient may require a repeat coronary angiogram to decide on further management. Status: Acute (2) Atherosclerotic heart disease of [place] coronary artery with other forms of angina pectoris: Patient had a multiple intervention of the LAD lesion in the past. Most likely he had restenosis in the same artery. This needs to be further evaluated. Status: Acute Code(s): I25.118 - Atherosclerotic heart disease of [place] coronary artery with other forms of angina pectoris (3) Hypotension (arterial): The etiology could be multifactorial. His LV ejection fraction was around 35 to 40% by echocardiogram in September of last year. The current coronary event coupled with anemia could be contributing to the hypotension. Currently the patient is normotensive. We may try to optimize his afterload reducing agents. We will repeat echocardiogram today to reevaluate the LV function. Status: Acute Qualifiers: Hypotension type: unspecified hypotension type Qualified Code(s): I95.9 - Hypotension, unspecified Code(s): I95.9 - Hypotension, unspecified (4) Anemia: Most likely related to chronic GI blood loss. It may be appropriate to give blood transfusion to keep the hemoglobin around 10 Status: Acute Qualifiers: Anemia type: iron deficiency Iron deficiency anemia type: chronic blood loss Qualified Code(s): D50.0 - Iron deficiency anemia secondary to blood loss (chronic) Code(s): D64.9 - Anemia, unspecified (5) Chronic abdominal pain: The etiology is unclear. Patient has been having intermittent constipation diarrhea. He requires further GI work-up. Status: Acute Code(s): R10.9 - Unspecified abdominal pain; G89.29 - Other chronic pain Additional A&P Information His other problems are #1. Essential benign hypertension, status post hypertension, currently normotensive. #2. Type 2 diabetes\ #3. Dyslipidemia #4. Renal insufficiency Based on the clinical progress and the dose of the above, further recommendations will be made. Thank you for the opportunity to eval this patient and make these recommendations. Consult Attestations Medical Necessity Statement: Patient requires continued hospital stay for close monitoring and further management Coding Level of Care Code Acute Water Filter Cleaner for Amber Campbell Diagnoses Recent myocardial infarction of anterior wall Atherosclerotic heart disease of [place] coronary artery with other forms of angina pectoris I25.118 Hypotension (arterial) I95.9 Hypotension type: unspecified hypotension type Anemia D50.0 Anemia type: iron deficiency Iron deficiency anemia type: chronic blood loss Chronic abdominal pain R10.9; G89.29
--- NOTE | 2019-04-01 09:45 | ECG_ITS ---
Measurements Intervals [place] Rate: 70 P: AR: 0 QRS: 92 QRSD: 101 T: 125 QT: 405 QTc: 439 ATRIAL FLUTTER/TACHYCARDIA BORDERLINE RIGHT AXIS DEVIATION [QRS AXIS > 90] NONSPECIFIC ST & T-WAVE ABNORMALITY ABNORMAL RHYTHM ECG Compared to ECG 02/28/2019 01:11:06 T-wave abnormality now present Sinus tachycardia no longer present Electronically Signed On 04-01-2019 16:29:02 ROOF FITTER by Efraín Harrington M.D. [email or web address]
[2019-04-01 10:25] LABS: Hematocrit 29.6 % (42.0-52.0); Hemoglobin 9.4 g/dL (11.7-16.6)
[2019-04-01] MEDS: pantoprazole 40 mg SDV IVP ×2 (10:26→17:41)
[2019-04-01 11:05] LABS: Troponin 5 6HR Delta -37 ng/L (0-12)
[2019-04-01 11:07] LABS: Troponin 5 6HR 1402 ng/L (0-15)
--- NOTE | 2019-04-01 11:10 | PC.NURSE ---
Per Dr. Kwon hold unit of PRBC's until recheck of H & H at 10 am
--- NOTE | 2019-04-01 11:11 | PC.NURSE ---
Called H & H results to Dr. Kwon. Current result is 9.8. Verbal order to hold transfusion. US and Echo in progress at bedside.
[2019-04-01 11:45] LABS: Influenza A by IFA Negative (Negative); Influenza B by IFA Negative (Negative)
[2019-04-01 12:25] LABS: Folate Level 11.6 ng/mL (4.5-32.2)
[2019-04-01] MEDS: ondansetron 2 mg/ML SDV 2 mL 4 MG IVP (12:41)
[2019-04-01 13:06] LABS: Ferritin 91 ng/mL (30-400); Iron 21 ug/dL (59-158); Percent Saturation 8.9 % (20-50); Total Iron Binding Capacity 234 mcg/dl; Unsaturated Iron Binding 213 ug/dL (112-347)
[2019-04-01 13:21] LABS: Vitamin B12 212 pg/mL (232-1245)
--- NOTE | 2019-04-01 15:22 | PC.CHAP ---
Pastoral Care Encounter/Spiritual Assessment Type of Contact [] Declined production tool engineer visit [] Patient/Family/Request visit [] Outpatient visit [] Follow-up visit [] Physician referral [] Code/Alert [x] Routine visit [] Staff referral [] Actively dying [] Patient sleeping [] Family support [] [] Out of room [] Palliative care [] [] Receiving care in room [] Pre-surgical visit [] Trauma [] Long length of stay [] ICU visit [] Other: Relational/Emotional Strength [x] Patient feels connected with others/family/visitors/staff [] Distress [] Loneliness/isolation [] Abandonment Spirituality of Patient [] Person of Naila [] Attends Alevism of their Naila [] Believes in Prayer [] Reads Bible or Gnosticism materials [x] There are Spiritual issues to be addressed Emergency Medical Technician Basic Interventions [] Prayer [] Active listening [] Non-anxious presence [] Spiritual/emotional support [] Crisis/trauma care [] Spiritual counseling [] Bereavement support [] Provided bereavement packet [] Provided Bible/devotional materials [] Provided toy/stuffed animal, coloring book to patient or family member [] Provided Communion [] Anointing/[place] [] Salvation [] Completed spiritual assessment [] Other: Impact on Illness or Injury [] Angry [x] Fearful [] Anxious [] Often cries [] Exhaustion [] Unable to work [] Unable to attend samaritan [] Unable to walk/stand [] Unable to read [] Unable to drive [] Unable to eat/drink [] Unable to sleep [] Unable to be with family [] Patient intubated [] Other: Summary Ot made it clear he didnt want chaolain there, although he was polite but evasive/dismissive Time spent with patient
[2019-04-01 15:59] LABS: Glucose Urine UA 4+ (Normal); Ketones Urine 1+ (Negative); Protein Urine Neg (Negative); Urine Appearance Clear (CLEAR); Urine Color Straw (Yellow); pH Urine 5 (5-7)
[2019-04-01 16:00] LABS: Bilirubin Urine Neg (NEGATIVE); Blood Urine Neg (Negative); Leukocyte Esterase Urine Negative (Negative); Nitrate Urine Negative (Negative); Urobilinogen Urine Norm (Negative)
[2019-04-01 16:02] LABS: Bacteria Urine 1+; Mucus Urine TRACE; RBC Urine 0-4 /hpf (0-2); Squamous Epithelial Cell Urine 0-4 (0-5); WBC Urine 0-4 /hpf (0-5)
[2019-04-01 16:03] LABS: Add Urine Culture? No; Hyaline Casts Urine 0-4
[2019-04-01] MEDS: FUROsemide 10 mg/mL SDV 4mL 40 MG IVP (16:20)
[2019-04-01] MEDS: insulin glargine 100 units/1 mL 20 UNIT SUBCUT ×2 (16:23→23:08)
[2019-04-01 16:42] LABS: Glucose Point of Care 300 mg/dL (70-110)
[2019-04-01] MEDS: ticagrelor 90 mg Tablet PO (17:44)
[2019-04-01 17:54] LABS: Glucose Point of Care 391 mg/dL (70-110)
--- NOTE | 2019-04-01 18:07 | ECG_ITS ---
Measurements Intervals [facility] Rate: 105 P: 52 IN: 191 QRS: 73 QRSD: 96 T: 54 QT: 295 QTc: 391 SINUS TACHYCARDIA WITH OCCASIONAL VENTRICULAR PREMATURE COMPLEXES WITH FREQUENT SUPRAVENTRICULAR PREMATURE COMPLEXES POSSIBLE LEFT ATRIAL ENLARGEMENT [-0.1mV P WAVE IN V1/V2] ST ELEVATION CONSISTENT WITH INJURY, PERICARDITIS, OR EARLY REPOLARIZATION [ST ELEVATION W/O NORMALLY INFLECTED T WAVE] NONSPECIFIC ST & T-WAVE ABNORMALITY Compared to ECG 04/01/2019 09:50:45 Ventricular premature complex(es) now present Early repolarization now present T-wave abnormality now present Sinus rhythm no longer present First degree AV block no longer present Myocardial infarct finding no longer present ST (T wave) deviation still present Electronically Signed On 04-02-2019 15:42:36 GLASS DEPOSITION TENDER by Efraín Harrington M.D. [email or web address]
--- NOTE | 2019-04-01 18:40 | CTR_ITS ---
PROCEDURE INFORMATION: Exam: CT Angiography Chest With Contrast Exam date and time: 04/01/2019 7:40 PM Age: 69 years old Clinical indication: Dyspnea; Prior surgery; Surgery date: 6+ months; Surgery type: Stents TECHNIQUE: Imaging protocol: Computed tomographic angiography of the chest with intravenous contrast. 3D rendering: MIP and/or 3D reconstructed images were created by the technologist. Total DLP: 623.61 mGy-cm Radiation optimization: All CT scans at this facility use at least one of these dose optimization techniques: automated exposure control; mA and/or kV adjustment per patient size (includes targeted exams where dose is matched to clinical indication); or iterative reconstruction. Contrast material: VISI; Contrast volume: 95 ml; Contrast route: IV; COMPARISON: CR XR chest 1V portable [id number] 04/01/2019 3:49 AM FINDINGS: Pulmonary arteries: There is no pulmonary embolus. Aorta: Unremarkable. No aortic aneurysm. No aortic dissection. Lungs: There is vascular congestion with cephalization of flow, interstitial edema and ground-glass opacities compatible with CHF. There is subpleural atelectasis of the dependent portions of the lungs. Hazy ground-glass opacities are noted in the lungs and may reflect mild pneumonitis/pneumonic infiltrates or early airspace edema. Pleural space: There small bilateral pleural effusions. Heart: Unremarkable. No cardiomegaly. No pericardial effusion. Mediastinum: A small hiatal hernia is present. Lymph nodes: There is a 1.8 cm right paratracheal lymph node image 112. Additional subcentimeter lymph nodes are noted in the mediastinum and jocelyn. Bones/joints: Unremarkable. No acute fracture. Soft tissues: Unremarkable. CT/CT angio chest [place] prot [id number] IMPRESSION: 1. There is vascular congestion with cephalization of flow, interstitial edema and ground-glass opacities compatible with CHF. 2. There is no pulmonary embolus. 3. Hazy ground-glass opacities are noted in the lungs and may reflect mild pneumonitis/pneumonic infiltrates or early airspace edema. Radiation Dose CTDIVOL = (mGy): DLP = 623.61 (mGy-cm)
[2019-04-01] MEDS: metoprolol tartrate 1 mg/1 mL SDV 5 mL 5 MG IV (18:55)
[2019-04-01] MEDS: heparin 5,000 unit/mL INJ 1 mL 5000 UNIT IV (19:00)
--- NOTE | 2019-04-01 19:13 | PM.EVENT ---
Event Note Event Note: Called with patient during the afternoon/evening with shortness of breath. Some desaturation with movement. Discussed with nurse and gave 40 mg of Lasix IV. Called back and examined patient, some crackles bibasilar. Did not diurese much with the initial Lasix. Repeat EKG with similar findings to admission. Discussed with cardiology who is coming in to see the patient again as well. We will perform a bladder scan to make sure no obstruction. Consider repeat dose of Lasix. Order CTA chest to rule out pulmonary embolism. Will give BiPAP as needed. Family has indicated they are thinking of transfer. I have discussed the situation with them and the current next steps to try to improve his respiratory condition.
--- NOTE | 2019-04-01 19:20 | PC.NURSE ---
patient sitting in chair orthopnic position very short of breath and on oxy mask 10 liters. sats [address] Kwon and Dr. Harringtoncalled requesting transfer [facility] to [place]. Explained to that patient must be stable before transfer occurs. Called resp per Dr. Harrington and placed on bipap also 5 mg lopressor given and 5000units of heparin given IV. patient stating he can not lay flat for CTA Told Dr. Harrington and will try to get resp under control and get CTA. Son in room and talking with doctor.
--- NOTE | 2019-04-01 19:36 | PC.NURSE ---
Dr Kwon here again talking to patient and explaing to her the transfer process. patient is doing much better on bipap and stated he thinks he could get cta done now. CT dept called.
[2019-04-01 19:37] LABS: Basophils % 0.1 %; Eosinophils % 0.3 %; Hematocrit 32.7 % (42.0-52.0); Hemoglobin 10.3 g/dL (11.7-16.6); Lymphocytes # 0.9 10^3/uL (0.8-4.8); Lymphocytes % 6.2 %; Mean Corpuscular HGB Conc 31.5 g/dL (30.0-36.0); Mean Corpuscular Hemoglobin 28.7 pg (28.0-34.0); Mean Corpuscular Volume 91.1 fL (80-94); Mean Platelet Volume 12.3 fL (7.4-10.4); Monocytes % 7.1 %; Neutrophils # 12.1 10^3/uL (1.8-7.7); Neutrophils % 85.9 %; Nucleated Red Blood Cells % 0 %; Platelet Count 276 10^3/cmm (130-400); Red Blood Count 3.59 10^6/uL (4.1-5.3); Red Cell Distribution Width 13.4 % (12.1-15.1); White Blood Count 14.1 10^3/uL (4.0-10.0)
[2019-04-01 19:57] LABS: Troponin T (5th) Once 1299 ng/mL (0-15)
[2019-04-01] MEDS: iodixanol 320 mg/mL 100mL Btl IV (20:08)
--- NOTE | 2019-04-01 20:49 | PC.NURSE ---
returned from cta patient bipap replaced
--- NOTE | 2019-04-01 20:54 | P.TS_ITS ---
Transfer Summary Providers Date of Admission: 04/01/19 05:43 Date of Discharge: 04/01/19 Attending Provider at Admission: Kate Becerril MD Attending Provider at Transfer: Kali Kwon MD Primary Care Provider: Jose Raul Riley Anticipated Date of Transfer: Anticipated date of transfer: 04/01/19 Receiving Facility & Provider: Receiving Provider: [] Receiving facility: [] Diagnoses at Discharge Discharge Diagnosis (1) Recent myocardial infarction of anterior wall: Status: Acute (2) Atherosclerotic heart disease of [place] coronary artery with other forms of angina pectoris: Status: Acute (3) Hypotension (arterial): Status: Acute Qualifiers: Hypotension type: unspecified hypotension type Qualified Code(s): I95.9 - Hypotension, unspecified (4) Anemia: Status: Acute Qualifiers: Anemia type: iron deficiency Iron deficiency anemia type: chronic blood loss Qualified Code(s): D50.0 - Iron deficiency anemia secondary to blood loss (chronic) (5) Chronic abdominal pain: Status: Acute Reason for Visit Reason for Visit: Reason For Visit: DIZZINESS Hospital Course Hospital Course: Patient's family is requesting transfer to [facility] for further cardiac evaluation however cardiology has evaluated him here and recommended angiogram on Wednesday. I have talked to [facility] health information specialist Dr. Pavon and Dr. Dianna Rinaldi Large Animal Veterinarian who graciously accepted the patient. Fabián Cruz is a 69 year old male with a history of coronary artery disease, multiple PCI's, is present with complaints of extreme weakness/fatigue. Patient was found to have an elevated troponin and abnormal EKG. The EKG was suggesting a recent anterior wall myocardial infarction. Patient is known to have single-vessel coronary disease, for which he underwent multiple PCI's in the past. He had a first myocardial infarction in 2016. He had a high-grade lesion in the proximal LAD for which he underwent PCI. He presented with unstable anginal symptoms in September 2017. He had features of restenosis of the LAD lesion. Underwent a repeat angioplasty and stent placement. Most recently in March 2018, he presented with unstable anginal symptoms. He had a PCI involving the ostium of the LAD, proximal to mid LAD lesions. Details are as mentioned below. According the patient, he has been having chest pains off and on for the last couple of years. He also has some stomach discomfort/bloating. He was not able to differentiate between the stomach problem and the heart pain. For this reason, he has been taking Gas-X/stomach medications for the lower epigastric/substernal discomfort which he usually gets after a meal. He has been having the symptoms almost every day, 2 or 3 times per day. He was seen by Dr. Mendoza on last Wednesday and at that time, was prescribed sublingual nitro. Since then, he has been taking the sublingual nitro for the symptoms. He has been taking 3 of 4 nitroglycerin under the tongue since then. According to his , he has been feeling tired, weak and somewhat unsteady for the last 3 weeks. He also was found to be pale. Last night, as he was getting ready to go to bed, he was found to be more weak, staggery and pale. He was sitting up in a chair for a long time. Finally around midnight, he decided to go to bed. He was not able to sleep. So around 2:00 in the morning, he got up and told his to bring him to the hospital. He did not have any chest pain at that time. His symptom was mainly feeling of weakness and some generalized uneasiness. He may have had some shortness of b reath. But no orthopnea or PND. No fever, chills or cough. No other specific complaints. He is a has been having stomach issues for the last few years. In January of last year, he was admitted to the hospital with an acute onset of nausea vomiting and diarrhea. He has intermittent constipation and diarrhea. He has not had any GI work-up recently. He is scheduled to have an appointment with Dr. Edwards for possible colonoscopy on the of this month. Today he was having shortness of breath at rest in ICU, diuretics were given twice, he was put on BiPAP to decrease the work of breathing with high IPAP which improved his respiratory status, CTA chest was obtained to rule out PE which did not show any pulmonary embolism, it was consistent with CHF prominent vessel congestions and cardiac silhouette. He seems stable to be transferred, doing well on BiPAP, he will be transferred on aspirin, Brilinta and heparin drip and high-dose statins. CONSTITUTIONAL: No fever or chills. Feeling of generalized weakness/unsteadiness EYES: No blurring of vision or other visual disturbances lately. ENT: No hoarseness of voice, auditory disturbances or sore throat. CARDIOVASCULAR: As mentioned above. RESPIRATORY: No significant cough. GASTROINTESTINAL: Has been having constipation/diarrhea/bloating and epigastric discomfort especially after a meal GENITOURINARY: No dysuria or hematuria. INTEGUMENTARY: No skin rashes or history of skin cancer. NEURO: No transient ischemic attacks or amaurosis. PSYCHIATRIC: No history of psychosis or major depression. HEMATOLOGIC: No bleeding disorders or significant anemia. ENDOCRINE: No history of polyuria or polydipsia. MUSCULOSKELETAL: Patient has been staggery with no joint pains ALLERGY/IMMUNOLOGY: As mentioned above. PFSH: Statuses (acute, chronic, etc) shown below reflect problem list status as previously entered and may not be historically accurate Medical History Benign prostate hyperplasia (Acute) CAD (coronary artery disease) (Acute) Coronary stent restenosis (Acute) Diabetes (Acute) Diabetic nephropathy (Acute) Dyslipidemia (Acute) Fatigue (Acute) Gastroesophageal reflux (Acute) H/O coronary angiogram (Acute) Hypertension (Acute) Surgical History H/O cardiac catheterization (Acute) History of heart artery stent (Acute) Hx of appendectomy (Acute) Family HistoryOther Hyperlipidemia Hypertension Social History Smoking and tobacco status: never smoked Alcohol intake: never Substance/Drug Use: never Household members: spouse Housing: House EXAM NARRATIVE: GENERAL: The patient is alert and oriented times three. Not in any acute distress. Mainly complaining of bloated feeling in the stomach HEENT: No significant pallor, icterus or lymphadenopathy. The pupils are reactant to light. Oral cavity: There are no mucous membrane lesions. Funduscopic examination: Fundus is not visualized NECK: Trachea appears to be central. No masses noted. No JVD or thyromegaly appreciated. No carotid bruit. RESPIRATORY: Chest is symmetrical. No intercostals muscle retraction or any accessory muscle activation. There is no chest wall tenderness. Breath sounds are heard bilaterally. No rales or rhonchi heard. No evidence of any consolidation. BREASTS: Deferred. HEART: The PMI could not be palpated. First and second heart sounds are normal. No S3. Short systolic murmur in the left sternal border. No diastolic murmurs. No pericardial rub. ABDOMEN: Slightly distended. Vague tenderness in the epigastric area. No organomegaly appreciated. Bowel sounds are normally heard. : Deferred. RECTAL: Deferred. LYMPHATIC: No lymphadenopathy noted in the neck or groin. EXTREMITIES: No edema or cyanosis. No clubbing. T peripheral pulses are palpable but somewhat weak bilaterally. MUSCULOSKELETAL: No acute joint deformities or swelling SKIN: There are no significant scars or skin rash noted. NEUROPSYCHIATRIC: The patient is alert and oriented x3. Appears to be in a good mood. The higher functions are grossly within normal limits. No tremors or rigidity noted. CXR: Borderline cardiac silhouette with no lung infiltrate. Slight prominence of the pulmonary vascular markings. No definite infiltrate. Cardiac catheterization: : Patient had the most recent cardiac cauterization in March 2018. Successful balloon angioplasty followed by drug-eluting placement inproximal mid and ostial LAD for severe in-stent restenosis. Patient wastreated for in- stent restenosis in September of last year. Because of worseningof angina despite of medical management to the point that he was having chestpain at rest patient was brought in today for coronary angiogram. LAD which has previous multiple proximal to mid stents had proximal and mid 80% severein-stent restenosis while ostial segment of the proximal LAD has severe 95%in-stent restenosis. Both lesions were treated with balloon angioplastyfollowed by [place] 3.0x12 and 3.0x8mm distal and Ostial LAD stents. The stents wereinflated at high VITALIY of 14 mmHg. Noncompliant 3.08 mm balloon was then usedto post dilate with the stents at 12 VITALIY. Excellent angiographic result withTIMI-3 flow was achieved. On 10/15/2017, the cardiac catheterization revealed #1 Left main is normal. #2 LAD has ostial 99% diffuse in-stent restenosis and proximal 70% diffuse in-stent restenosis of previously placed stents. It is the culprit vessel. #4 obtuse marginal 1 is small caliber diffusely diseased vessel which has ostial 80% stenosis not amenable to intervention. Obtuse marginal 2 is small caliber moderate-sized vessel with mid diffuse disease. #5 RCA is small nondominant vessel with luminal irregularities. Successful PCI to ostial and proximal LAD for severe in-stent restenosis. Lesions were prepared with 2.0x12 AB TREK balloon, followed by deployment of JASON INTEGRITY 3.0 X 15 mm stent posted at high VITALIY of 12 mm. Stent was then post-dilated with serial dilatation of NC Quantum3.0 x 12 at 18ATM in its entire length to ensure proper approximation. In-stent restenosis of the proximal LAD stent was treated with NC balloon as well. 70% lesion was reduced to 10%. Excellent angiographic result with MANNY-3 flow was achieved. There is severe coronary artery disease with one vessel disease. EKG^: EKG 1: My Interpretation: Atrial fibrillation with a controlled ventricular response rate. Features of recent anteroseptal wall SC. Nonspecific ST-T changes in the other leads. EKG 2: My Interpretation: Atrial fibrillation/flutter with a ventricular rate of 70 bpm. Poor R wave progression with a features of recent anteroseptal SC nonspecific ST-T changes. Minimal right axis deviation. Assessment and plan (1) Recent myocardial infarction of anterior wall: The clinical features are consistent with recent anterior wall myocardial infarction. The EKG changes and the elevated troponin are highly suggestive of the recent event. Patient may be kept on the current medications at this time. Because of the significant drop in the hemoglobin, it may be appropriate to hold off on the IV anticoagulation at this time. Patient may require a repeat coronary angiogram to decide on further management. (2) Atherosclerotic heart disease of [place] coronary artery with other forms of angina pectoris: Patient had a multiple intervention of the LAD lesion in the past. Most likely he had restenosis in the same artery. This needs to be further evaluated. I25.118 - Atherosclerotic heart disease of [place] coronary artery with other forms of angina pectoris (3) Hypotension (arterial): The etiology could be multifactorial. His LV ejection fraction was around 35 to 40% by echocardiogram in September of last year. The current coronary event coupled with anemia could be contributing to the hypotension. Currently the patient is normotensive. We may try to optimize his afterload reducing agents. We will repeat ec hocardiogram today to reevaluate the LV function. Hypotension type: unspecified hypotension type Qualified - HypotensionI 95.9 - Hypotension, unspecified (4) Anemia: Most likely related to chronic GI blood loss. It may be appropriate to give blood transfusion to keep the hemoglobin around 10 Anemia type: iron deficiency Iron deficiency anemia type: chronic blood loss- Iron deficiency anemia secondary to blood loss - Anemia, (5) Chronic abdominal pain: The etiology is unclear. Patient has been having intermittent constipation diarrhea. He requires further GI work-up. His other problems are #1. Essential benign hypertension,, currently normotensive. #2. Type 2 diabetes #3. Dyslipidemia #4. Renal insufficiency TS Data Data Completed and Pending: Completed Studies During Hospitalization Category Date Time Status CT abdomen pelvis wo con [id number] Stat Cat Scan 04/01/19 05:[address] angio chest PE protcl [id number] Rout ine Cat Scan 04/01/19 18:40 Completed XR chest 1V ni ble [id number] Urgent Exams 04/01/19 03:42 Completed CV echo complete* [id number] Urgent Ultrasound 04/01/19 06:40 Completed US gall bladder 7 [id number] Routine Ultrasound 04/01/19 08:34 Completed Pending at discharge Category Date Time Status Blood Culture Sta t Lab 04/01/19 05:39 Results Complete Blood Co unt w/Auto AM LABS Lab 04/02/19 04:00 Ordered Leukocyte Reduced RBC Stat Lab 04/01/19 05:39 Results Type and Screen S tat Lab 04/01/19 05:39 Results Labs from last 24 hours 04/01/19 04/01/19 04/01/19 19:15 19:15 16:57 WBC 14.1 H RBC 3.59 L Hgb 10.3 L Hct 32.7 L MCV 91.1 MCH 28.7 MCHC 31.5 RDW 13.4 Plt Count 276 MPV 12.3 H Neut % (Auto) 85.9 Lymph % (Auto) 6.2 [place] % (Auto) 7.1 Eos % (Auto) 0.3 Baso % (Auto) 0.1 Neut # (Auto) 12.1 H Lymph # (Auto) 0.9 [place] # (Auto) 1.0 H Eos # (Auto) 0.0 Baso # (Auto) 0.0 Nucleated RBC % (a uto) 0 Nucleated RBCs # 0.0 PT INR APTT Sodium Potassium Chloride Carbon Dioxide Anion Gap BUN Creatinine GFR Calculation Glucose POC Glucose 391 Lactate Calcium Magnesium Iron TIBC % Saturation Unsat Iron Binding Ferritin Total Bilirubin AST ALT Alkaline Phosphata se Creatine Kinase Troponin I 6 Hour Troponin I Hi Sens Del Troponin T Gen 5 n g/L 1299 H* Troponin T Baselin e Troponin T 120 Min [place] Troponin T NT-Pro-B Natriuret Pep Total Protein Albumin Globulin Vitamin B12 Folate TSH Urine Color Urine Appearance Urine pH Ur Specific Gravit y Urine Protein Urine Glucose (UA) Urine Ketones Urine Occult Blood Urine Nitrate Urine Bilirubin Urine Urobilinogen Ur Leukocyte Alva ase Urine RBC Urine WBC Ur Squamous Epith Cells Urine Bacteria Hyaline Casts Urine Mucus Influenza Type A A g POC Influenza B Ag Blood Type Antibody Screen Crossmatch 04/01/19 04/01/19 04/01/19 14:30 12:19 09:55 WBC RBC Hgb Hct MCV MCH MCHC RDW Plt Count MPV Neut % (Auto) Lymph % (Auto) [place] % (Auto) Eos % (Auto) Baso % (Auto) Neut # (Auto) Lymph # (Auto) [place] # (Auto) Eos # (Auto) Baso # (Auto) Nucleated RBC % (a uto) Nucleated RBCs # PT INR APTT Sodium Potassium Chloride Carbon Dioxide Anion Gap BUN Creatinine GFR Calculation Glucose POC Glucose 300 Lactate Calcium Magnesium Iron TIBC % Saturation Unsat Iron Binding Ferritin Total Bilirubin AST ALT Alkaline Phosphata se Creatine Kinase Troponin I 6 Hour Troponin I Hi Sens Del Troponin T Gen 5 n g/L Troponin T Baselin e Troponin T 120 Min [place] Troponin T NT-Pro-B Natriuret Pep Total Protein Albumin Globulin Vitamin B12 Folate 11.6 TSH Urine Color Straw Urine Appearance Clear Urine pH 5 Ur Specific Gravit y 1.010 Urine Protein Neg Urine Glucose (UA) 4+ H Urine Ketones 1+ H Urine Occult Blood Neg Urine Nitrate Negative Urine Bilirubin Neg Urine Urobilinogen Norm Ur Leukocyte Alva ase Negative Urine RBC 0-4 H Urine WBC 0-4 H Ur Squamous Epith Cells 0-4 H Urine Bacteria 1+ H Hyaline Casts 0-4 H Urine Mucus Trace Influenza Type A A g POC Influenza B Ag Blood Type Antibody Screen Crossmatch 04/01/19 04/01/19 04/01/19 09:55 09:55 09:55 WBC RBC Hgb 9.4 L Hct 29.6 L MCV MCH MCHC RDW Plt Count MPV Neut % (Auto) Lymph % (Auto) [place] % (Auto) Eos % (Auto) Baso % (Auto) Neut # (Auto) Lymph # (Auto) [place] # (Auto) Eos # (Auto) Baso # (Auto) Nucleated RBC % (a uto) Nucleated RBCs # PT INR APTT Sodium Potassium Chloride Carbon Dioxide Anion Gap BUN Creatinine GFR Calculation Glucose POC Glucose Lactate Calcium Magnesium Iron 21 L TIBC 234 % Saturation 8.9 L Unsat Iron Binding 213 Ferritin 91 Total Bilirubin AST ALT Alkaline Phosphata se Creatine Kinase Troponin I 6 Hour 1402 H Troponin I Hi Sens Del -37 L Troponin T Gen 5 n g/L Troponin T Baselin e Troponin T 120 Min [place] Troponin T NT-Pro-B Natriuret Pep Total Protein Albumin Globulin Vitamin B12 212 L Folate TSH Urine Color Urine Appearance Urine pH Ur Specific Gravit y Urine Protein Urine Glucose (UA) Urine Ketones Urine Occult Blood Urine Nitrate Urine Bilirubin Urine Urobilinogen Ur Leukocyte Alva ase Urine RBC Urine WBC Ur Squamous Epith Cells Urine Bacteria Hyaline Casts Urine Mucus Influenza Type A A g POC Influenza B Ag Blood Type Antibody Screen Crossmatch 04/01/19 04/01/19 04/01/19 09:30 06:11 06:11 WBC RBC Hgb Hct MCV MCH MCHC RDW Plt Count MPV Neut % (Auto) Lymph % (Auto) [place] % (Auto) Eos % (Auto) Baso % (Auto) Neut # (Auto) Lymph # (Auto) [place] # (Auto) Eos # (Auto) Baso # (Auto) Nucleated RBC % (a uto) Nucleated RBCs # PT INR APTT Sodium Potassium Chloride Carbon Dioxide Anion Gap BUN Creatinine GFR Calculation Glucose POC Glucose Lactate Calcium Magnesium Iron TIBC % Saturation Unsat Iron Binding Ferritin Total Bilirubin AST ALT Alkaline Phosphata se Creatine Kinase Troponin I 6 Hour Troponin I Hi Sens Del Troponin T Gen 5 n g/L Troponin T Baselin e Troponin T 120 Min [place] 1438.00 H Delta Troponin T -1.00 L NT-Pro-B Natriuret Pep Total Protein Albumin Globulin Vitamin B12 Folate TSH 3.67 Urine Color Urine Appearance Urine pH Ur Specific Gravit y Urine Protein Urine Glucose (UA) Urine Ketones Urine Occult Blood Urine Nitrate Urine Bilirubin Urine Urobilinogen Ur Leukocyte Alva ase Urine RBC Urine WBC Ur Squamous Epith Cells Urine Bacteria Hyaline Casts Urine Mucus Influenza Type A A g Negative POC Influenza B Ag Negative Blood Type Antibody Screen Crossmatch 04/01/19 04/01/19 04/01/19 05:39 05:39 04:10 WBC RBC Hgb 9.0 L Hct 27.9 L MCV MCH MCHC RDW Plt Count MPV Neut % (Auto) Lymph % (Auto) [place] % (Auto) Eos % (Auto) Baso % (Auto) Neut # (Auto) Lymph # (Auto) [place] # (Auto) Eos # (Auto) Baso # (Auto) Nucleated RBC % (a uto) Nucleated RBCs # PT INR APTT Sodium 130 L Potassium 3.9 Chloride 94 L Carbon Dioxide 20 L Anion Gap 19.9 H BUN 12 Creatinine 1.3 H GFR Calculation 55.1 L Glucose 292 H POC Glucose Lactate Calcium 8.6 Magnesium 1.3 L Iron TIBC % Saturation Unsat Iron Binding Ferritin Total Bilirubin 1.8 H AST 46 H ALT 17 Alkaline Phosphata se 77 Creatine Kinase 489 H* Troponin I 6 Hour Troponin I Hi Sens Del Troponin T Gen 5 n g/L Troponin T Baselin e Troponin T 120 Min [place] Troponin T NT-Pro-B Natriuret Pep 88564 H Total Protein 6.5 L Albumin 3.0 L Globulin 3.5 Vitamin B12 Folate TSH Urine Color Urine Appearance Urine pH Ur Specific Gravit y Urine Protein Urine Glucose (UA) Urine Ketones Urine Occult Blood Urine Nitrate Urine Bilirubin Urine Urobilinogen Ur Leukocyte Alva ase Urine RBC Urine WBC Ur Squamous Epith Cells Urine Bacteria Hyaline Casts Urine Mucus Influenza Type A A g POC Influenza B Ag Blood Type O Negative Antibody Screen Negative Crossmatch See Detail 04/01/19 04/01/19 04/01/19 04:10 04:10 04:10 WBC RBC Hgb Hct MCV MCH MCHC RDW Plt Count MPV Neut % (Auto) Lymph % (Auto) [place] % (Auto) Eos % (Auto) Baso % (Auto) Neut # (Auto) Lymph # (Auto) [place] # (Auto) Eos # (Auto) Baso # (Auto) Nucleated RBC % (a uto) Nucleated RBCs # PT INR APTT Sodium Cancelled Potassium Cancelled Chloride Cancelled Carbon Dioxide Cancelled Anion Gap Cancelled BUN Cancelled Creatinine Cancelled GFR Calculation Cancelled Glucose Cancelled POC Glucose Lactate 2.3 H Calcium Cancelled Magnesium Cancelled Iron TIBC % Saturation Unsat Iron Binding Ferritin Total Bilirubin Cancelled AST Cancelled ALT Cancelled Alkaline Phosphata se Cancelled Creatine Kinase Cancelled Troponin I 6 Hour Troponin I Hi Sens Del Troponin T Gen 5 n g/L Troponin T Baselin e 1439 H* Troponin T 120 Min [place] Troponin T NT-Pro-B Natriuret Pep Cancelled Total Protein Cancelled Albumin Cancelled Globulin Cancelled Vitamin B12 Folate TSH Urine Color Urine Appearance Urine pH Ur Specific Gravit y Urine Protein Urine Glucose (UA) Urine Ketones Urine Occult Blood Urine Nitrate Urine Bilirubin Urine Urobilinogen Ur Leukocyte Alva ase Urine RBC Urine WBC Ur Squamous Epith Cells Urine Bacteria Hyaline Casts Urine Mucus Influenza Type A A g POC Influenza B Ag Blood Type Antibody Screen Crossmatch 04/01/19 04/01/19 04:10 04:10 WBC 10.5 H RBC 3.11 L Hgb 8.8 L Hct 27.1 L MCV 87.1 MCH 28.3 MCHC 32.5 RDW 13.5 Plt Count 195 MPV 12.4 H Neut % (Auto) 69.2 Lymph % (Auto) 16.5 [place] % (Auto) 12.8 Eos % (Auto) 1.1 Baso % (Auto) 0.2 Neut # (Auto) 7.3 Lymph # (Auto) 1.7 [place] # (Auto) 1.4 H Eos # (Auto) 0.1 Baso # (Auto) 0.0 Nucleated RBC % (a uto) 0 Nucleated RBCs # 0.0 PT 15.40 H INR 1.18 APTT 24.5 Sodium Potassium Chloride Carbon Dioxide Anion Gap BUN Creatinine GFR Calculation Glucose POC Glucose Lactate Calcium Magnesium Iron TIBC % Saturation Unsat Iron Binding Ferritin Total Bilirubin AST ALT Alkaline Phosphata se Creatine Kinase Troponin I 6 Hour Troponin I Hi Sens Del Troponin T Gen 5 n g/L Troponin T Baselin e Troponin T 120 Min [place] Troponin T NT-Pro-B Natriuret Pep Total Protein Albumin Globulin Vitamin B12 Folate TSH Urine Color Urine Appearance Urine pH Ur Specific Gravit y Urine Protein Urine Glucose (UA) Urine Ketones Urine Occult Blood Urine Nitrate Urine Bilirubin Urine Urobilinogen Ur Leukocyte Alva ase Urine RBC Urine WBC Ur Squamous Epith Cells Urine Bacteria Hyaline Casts Urine Mucus Influenza Type A A g POC Influenza B Ag Blood Type Antibody Screen Crossmatch Vitals: Last Vital Signs Temp 98.2 F 04/01/19 20:37 Pulse 77 04/01/19 20:52 Resp 27 H 04/01/19 20:46 BP 119/69 04/01/19 20:46 Pulse Ox 95 04/01/19 20:52 TS Medications Medications Home Medications acetaminophen 650 mg PO Q4H PRN 02/28/19 [History Confirmed 04/01/19] aspirin [Aspir-81] 81 mg PO DAILY 02/28/19 [History Confirmed 04/01/19] atorvastatin 80 mg PO BEDTIME 02/28/19 [History Confirmed 04/01/19] gabapentin 900 mg PO BID 02/28/19 [History Confirmed 04/01/19] insulin NPH and regular human [Novolin 70/30 U-100 Insulin] 30 unit SUBCUT BID 02/28/19 [History Confirmed 04/01/19] insulin glargine [Lantus U-100 Insulin] 50 unit SUBCUT DAILY 02/28/19 [History Confirmed 04/01/19] metformin 1,000 mg PO BID 02/28/19 [History Confirmed 04/01/19] tamsulosin 0.4 mg PO DAILY 02/28/19 [History Confirmed 04/01/19] ticagrelor 90 mg PO BID 02/28/19 [History Confirmed 04/01/19] albuterol sulfate 90 mcg/actuation aerosol inhaler 2 puff INHALATION Q6H PRN 03/29/19 [History Confirmed 04/01/19] isosorbide mononitrate 30 mg tablet,extended release 24 hr 15 mg PO BID 30 Days #30 tab 03/29/19 [Rx Confirmed 04/01/19] pantoprazole 40 mg tablet,delayed release 40 mg PO BID 30 Days #60 tab 03/29/19 [Rx Confirmed 04/01/19] Active Medications Aspirin (Aspirin Ec) 81 mg PO DAILY ROSHAN Atorvastatin Calcium (Lipitor) 80 mg PO BEDTIME ROSHAN Cyanocobalamin (Vitamin B-12) 1,000 mcg PO DAILY ROSAHN Dextrose (D50w) 25 ml IVP ONCE PRN; Protocol PRN Reason: hypoglycemia protocol Dextrose (D50w) 50 ml IVP PRN PRN; Protocol PRN Reason: hypoglycemia protocol Glucagon (Glucagen) 1 mg IM ONCE PRN; Protocol PRN Reason: Adult Acute Hypoglycemia Prot. Dextrose (D5w) 500 mls @ 100 mls/hr IV ONCE PRN; Protocol PRN Reason: Adult Acute Hypoglycemia Prot Nitroglycerin/Dextrose (Nitroglycerin Drip) 50 mg in 250 mls @ 0 mls/hr IV .Q0M ROSHAN; Protocol Insulin Aspart (Novolog) 0 unit SUBCUT WM&BEDTIME ROSHAN; Protocol Last Admin: 04/01/19 17:41 Dose: 14 unit Documented by: Insulin Glargine (Lantus) 20 unit SUBCUT BEDTIME ROSHAN Ondansetron HCl (Zofran) 4 mg IVP Q6H PRN PRN Reason: NAUSEA AND VOMITING Last Admin: 04/01/19 12:41 Dose: 4 mg Documented by: Pantoprazole Sodium (Protonix) 40 mg IVP BID [facility] Last Admin: 04/01/19 17:41 Dose: 40 mg Documented by: Ticagrelor (Brilinta) 90 mg PO BID [facility] Last Admin: 04/01/19 17:44 Dose: 90 mg Documented by: Discharge Plan Discharge Patient Disposition: Xfer Other Condition: Good Prescriptions: Continued albuterol sulfate 90 mcg/actuation HFA aerosol inhaler 2 puff INHALATION Q6H PRN (Reason: Shortness Of Breath Or Wheezing) RF: 0 isosorbide mononitrate 30 mg tablet extended release 24 hr 15 mg PO BID 30 Days Qty: 30 RF: 6 pantoprazole 40 mg tablet,delayed release (DR/EC) 40 mg PO BID 30 Days Qty: 60 RF: 6 atorvastatin 80 mg Tablet 80 mg PO BEDTIME RF: 0 Lantus U-100 Insulin 100 unit/mL Solution 50 unit SUBCUT DAILY RF: 0 Novolin 70/30 U-100 Insulin 100 unit/mL (70-30) Suspension 30 unit SUBCUT BID RF: 0 aspirin [Aspir-81] 81 mg Tablet,Delayed Release (Dr/Ec) 81 mg PO DAILY RF: 0 tamsulosin 0.4 mg Capsule 0.4 mg PO DAILY RF: 0 gabapentin 300 mg Capsule 900 mg PO BID RF: 0 ticagrelor 90 mg Tablet 90 mg PO BID RF: 0 Discontinued acetaminophen 650 mg Tablet Extended Release 650 mg PO Q4H PRN (Reason: Pain) RF: 0 metformin 1,000 mg Tablet 1,000 mg PO BID RF: 0 Discharge Diet: Low Salt Discharge Activity: Bedrest Transfer Attestations Time Spent in Transfer Care*: greater than 30 min Quality Metrics Clinical Quality Measures: During this hospital stay, did patient experience: AMI Clinical Trial Participant: No Contraindication to aspirin (AMI): Aspirin given Contraindication to statin: Statin prescribed Coding Level of Care Code Acute Machine [employer] for [employer] [facility] Diagnoses 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
[2019-04-01] MEDS: heparin drip 25,000 UNIT/500 ML PREMIX 23.6 UNIT IV ×2 (23:06→23:20)
--- NOTE | 2019-04-01 23:20 | PC.NURSE ---
[facility] for [facility] in route to here. heparin gtt started at 1000 units hour.
[2019-04-02 00:21] VITALS: BP 128/85; PULSE 89; RESP 28; TEMP 36.7
[2019-04-02 03:34] LABS: Glucose Point of Care 392 mg/dL (70-110)
== END 2019-04-02 00:15 | disposition short-term general hospital (02) | DRG 282 ==
LOC: ER 04:52 → ICU 06:16
PROVIDERS: Internal Medicine Cardiovascular Disease; Admitting Provider Internal Medicine; Emergency Provider Emergency Medicine; Family Provider Internal Medicine; PCP Internal Medicine; Visit Provider Internal Medicine
DX: I21.09 ST elevation (STEMI) myocardial infarction involving other coronary artery of anterior wall (principal); I25.750 Atherosclerosis of native coronary artery of transplanted heart with unstable angina; Z95.5 Presence of coronary angioplasty implant and graft; I95.1 Orthostatic hypotension; E78.5 Hyperlipidemia, unspecified; E11.9 Type 2 diabetes mellitus without complications; Z79.4 Long term (current) use of insulin; N40.0 Benign prostatic hyperplasia without lower urinary tract symptoms; K21.9 Gastro-esophageal reflux disease without esophagitis; E11.21 Type 2 diabetes mellitus with diabetic nephropathy; Z79.899 Other long term (current) drug therapy; Z79.82 Long term (current) use of aspirin; K59.00 Constipation, unspecified; R19.7 Diarrhea, unspecified; D50.0 Iron deficiency anemia secondary to blood loss (chronic); R10.9 Unspecified abdominal pain; G89.29 Other chronic pain
CPT/HCPCS: 12345; 36415; 36416; 71045; 71275; 74176; 76705; 80053; 81001; 82550; 82607; 82728; 82746; 82962; 83540; 83550; 83605; 83735; 83880; 84443; 84484; 85014; 85018; 85025; 85610; 85730; 86850; 86900; 87040; 87804; 93005; 93306; 94660; 96372; 96375; 99284; C9113; J1644; J1815; J1940; J2405; J3475; J3490; J7030; J7040; Q9967